=== PATIENT | male | born 1980 | race Caucasian/White ===

== ENCOUNTER 2024-02-19 15:44 | Emergency (ER) | payer OTHER, MEDICARE ==
[~2024-02-19] VITALS: Ht 180.3 cm; Wt 127.9 kg
[2024-02-19] MEDS ORDERED: METO200T15 PO (16:26)
[2024-02-19] MEDS ORDERED: ATOR80TA59 PO (16:30)
[2024-02-19] MEDS ORDERED: VITA200031 PO (16:30)
[2024-02-19] MEDS ORDERED: METF500T13 PO (16:30)
[2024-02-19] MEDS ORDERED: MELO15TA28 PO (16:30)
[2024-02-19] MEDS ORDERED: OMEG10002 PO (16:30)
[2024-02-19 17:50] LABS: BASO # 0.1 10^3/uL (0.0-0.2); BASO % 0.6 % (0.0-1.0); EOS # 0.2 10^3/uL (0.0-0.5); EOS % 2.1 % (0.0-3.0); HEMATOCRIT 44.3 % (42.0-52.0); HEMOGLOBIN 15.3 g/dl (13.5-17.5); LYMPH # 2.9 10^3/uL (1.5-5.0); LYMPH % 35.5 % (24.0-44.0); MEAN CORPUSCULAR HEMOGLOBIN 30.8 pg (27.0-33.0); MEAN CORPUSCULAR HGB CONC 34.5 g/dl (32.0-36.5); MEAN CORPUSCULAR VOLUME 89.1 fl (80.0-96.0); MONO # 0.6 10^3/uL (0.0-0.8); MONO % 7.3 % (2.0-8.0); NEUTROPHILS # 4.5 10^3/uL (1.5-8.5); NEUTROPHILS % 54.1 % (36.0-66.0); PLATELET COUNT, AUTOMATED 145 10^3/uL (150-450); RED BLOOD COUNT 4.97 10^6/uL (4.30-6.10); WHITE BLOOD COUNT 8.3 10^3/uL (4.0-10.0)
[2024-02-19 18:10] LABS: ERYTHROCYTE SEDIMENTATION RATE 28 mm/hr (0-15)
[2024-02-19 18:16] LABS: BLOOD UREA NITROGEN 12 MG/DL (9-23); CALCIUM LEVEL 9.3 MG/DL (8.5-10.1); CARBON DIOXIDE LEVEL 26 MMOL/L (20-31); CHLORIDE LEVEL 102 MMOL/L (98-107); CREATININE FOR GFR 0.65 MG/DL (0.70-1.30); GLOMERULAR FILTRATION RATE > 60.0 (>60); GLUCOSE, FASTING 228 MG/DL (60-100); POTASSIUM SERUM 4.2 MMOL/L (3.5-5.1); SODIUM LEVEL 135 MMOL/L (136-145)
[2024-02-19 19:19] VITALS: TEMP 97.7
[2024-02-19] MEDS: CLINDAMYCIN 600 MG in IV 1 EA IV ONE (23:13)
[2024-02-19] MEDS ORDERED: CLEO300C2 PO (23:25)
[2024-02-20 00:05] VITALS: BP 144/89; O2SAT 94
== END 2024-02-20 00:06 | disposition home or self-care (01) ==
LOC: M ED 15:44
DX: L03.115 Cellulitis of right lower limb (principal); S81.801A Unspecified open wound, right lower leg, initial encounter; E11.9 Type 2 diabetes mellitus without complications; I10 Essential (primary) hypertension; E78.5 Hyperlipidemia, unspecified; F17.200 Nicotine dependence, unspecified, uncomplicated; F10.10 Alcohol abuse, uncomplicated; Z79.02 Long term (current) use of antithrombotics/antiplatelets; Z79.4 Long term (current) use of insulin; Z79.899 Other long term (current) drug therapy; Y93.9 Activity, unspecified
CPT/HCPCS: 73590; 80048; 85025; 85652; 86140; 87040; 87070; 87077; 87186; 96374; 99284; J0737